=== PATIENT | female | born 1995 | race Caucasian/White ===

== ENCOUNTER 2017-08-31 11:02 | Emergency (ER) | payer BC ==
[2017-08-31 11:16] VITALS: TEMP 96.8
--- NOTE | 2017-08-31 12:07 | RAD ---
Procedure: XR MANDIBLE 1-3 VIEWS Exam Date: 08/31/2017 11:13 AM CDT Ordering Provider: Tuan Gonzalez Clinical Indication: jaw pain after trauma Comparison: None Findings: There is a subtle lucency involving the left mandibular condylar neck with slight angulation. This may be from a nondisplaced fracture. IMPRESSION: Possible nondisplaced fracture at the left mandibular condyle neck. Recommend correlation with direct palpation. This could be further assessed with cross-sectional examination there is high clinical concern. Electronically signed by: Gonzalo Irene MD 08/31/2017 12:06 PM CDT
[2017-08-31] MEDS ORDERED: HYDROcodone 5MG/APAP 325MG 1 EA TAB PO ONE (12:21)
[2017-08-31] MEDS ORDERED: diphenhydrAMINE HCL 25 MG CAP PO ONE (12:40)
[2017-08-31] MEDS ORDERED: SULFA/TRIMETH 800/160 (DS) TAB 1 EA TAB PO ONE ×2 (12:40→13:18)
[2017-08-31] MEDS ORDERED: predniSONE 20 MG TAB PO ONE (12:40)
--- NOTE | 2017-08-31 12:43 | ED.PDOC ---
History of Present Illness - General Chief Complaint: Laceration Stated Complaint: laceration Time Seen by Provider: 08/31/17 11:12 Source: patient Exam Limitations: no limitations - History of Present Illness Initial Comments: hit chin on friend while tubing [place] the [place] now with 1 inch incision under the chin and pain in the left jaw with mild swelling in that area. normal teeth occlusion. no other areas or pain or obvious injury no evidence of concussion or neck pain. Severity: moderate Improving Factors: immobilization Worsening Factors: movement Associated Symptoms: denies symptoms Allergies/Adverse Reactions: Allergies NO KNOWN ALLERGY Allergy (Verified 08/31/17 11:16) Home Medications: Ambulatory Orders Pspheolitcehz-Enwp-Rekiopfycn [Fioricet] 1 ea PO Q8H PRN #21 tab 08/31/17 Norgestimate-Ethinyl Estradiol [Sprintec 28 0.25-35 mg-Mcg] 1 tablet PO DAILY Sulfa/Trimeth 800/160 (Ds) Tab [Bactrim DS Tab] 1 ea PO DAILY #5 tab 08/31/17 Review of Systems - Review of Systems Constitutional: States: no symptoms reported EENTM: States: see HPI Respiratory: States: no symptoms reported Cardiology: States: no symptoms reported Gastrointestinal/Abdominal: States: no symptoms reported Genitourinary: States: no symptoms reported Musculoskeletal: States: no symptoms reported Skin: States: see HPI Neurological: States: no symptoms reported Endocrine: States: no symptoms reported All other Systems: No Change from Baseline Past Medical History (General) - Patient Medical History Hx Asthma: No Surgical History: other - Vaccination History Hx Tetanus, Diphtheria Vaccination: Yes Hx Influenza Vaccination: No - Social History Hx Alcohol Use: Yes - socially - Female History Patient : No Family Medical History - Family History Mother Family History: Unknown Physical Exam - Physical Exam General Appearance: Alert, Comfortable, No apparent distress Eye Exam: bilateral normal Ears, Nose, Throat: hearing grossly normal, normal pharynx, other - pain to left tmj Neck: full range of motion, supple Respiratory: lungs clear, normal breath sounds, no respiratory distress, no accessory muscle use Cardiovascular/Chest: normal peripheral pulses, regular rate, rhythm, no edema Peripheral Pulses: radial,right: 2+, radial,left: 2+, dorsalis pedis,right: 2+, dorsalis pedis,left: 2+ Rectal Exam: deferred Back Exam: normal inspection, no CVA tenderness, no vertebral tenderness Extremity: normal range of motion, non-tender, normal inspection, no pedal edema , normal capillary refill Neurologic: hall monitor II-XII nml as tested, alert, normal mood/affect, oriented x 3 Skin Exam: other - see hpi Comments: Vital Signs - 24 hr 08/31/17 11:07 Temperature 96.8 F L Pulse Rate [ 107 H pulse ox] Respiratory 20 Rate Blood Pressure 132/92 [Right Arm] O2 Sat by Pulse 99 Oximetry Progress - Progress Progress: 08/31/17 13:19 pt with 1 inch chin lac without evidence of underlying fracture. r/b explained and repair done after cleaning with peroxide with 3 simple sutures of 4-0 ethilon after 2 times of lidocaine with epi x3cc each for local. tolerated well. ebl less than 5cc. cover with bandaid and abo. keep out of sun. will be on bactrim daily for 5 days for prophylaxis. follow up with ent of her choice in [place] for nondisplaced left mandibular condyle fracture in 1-2 weeks. for now have liquid and pureed diet. good teeth occlusion at this time. er warnings given. Departure - Departure Clinical Impression: Accidental laceration Fracture of mandible Qualifiers: Encounter type: initial encounter Fracture type: closed Mandible location: condylar process Laterality: left Qualified Code(s): S02.612A - Fracture of condylar process of left mandible, initial encounter for closed fracture Disposition: Discharge to Home or Self Care Condition: Fair Departure Forms: ED Discharge - Pt. Copy, Patient Portal Self Enrollment Instructions: DI for Laceration Repair -- Simple, Jaw Fracture Diet: other - pureed Activity: ambulate only with walker Prescriptions: Bcqojwcbwmmwm-Tkow-Xkxaqmfrcz [Fioricet] 1 ea PO Q8H PRN #21 tab PRN Reason: Pain Sulfa/Trimeth 800/160 (Ds) Tab [Bactrim DS Tab] 1 ea PO DAILY #5 tab Home Medications: Ambulatory Orders Qcrlqhiyhemzi-Vkzl-Kfxbojcmie [Fioricet] 1 ea PO Q8H PRN #21 tab 08/31/17 Norgestimate-Ethinyl Estradiol [Sprintec 28 0.25-35 mg-Mcg] 1 tablet PO DAILY 07 /04/18 Sulfa/Trimeth 800/160 (Ds) Tab [Bactrim DS Tab] 1 ea PO DAILY #5 tab 08/31/17 Additional Instructions: pt with 1 inch chin lac without evidence of underlying fracture. repair done after cleaning with peroxide with 3 simple sutures of 4-0 ethilon after 2 times of lidocaine with epi x3cc each for local. cover with bandaid and abo. keep out of sun. will be on bactrim daily for 5 days for prophylaxis. follow up with ent of her choice in [place] for nondisplaced left mandibular condyle fracture in 1-2 weeks. for now have liquid and pureed diet. good teeth occlusion at this time. er warnings given.
[2017-08-31] MEDS ORDERED: NEOMYCIN-BACITRACIN-POLYMYXIN 0.9 GM UD TOP ONE (13:30)
[2017-08-31 13:41] VITALS: BP 142/96; O2SAT 95
== END 2017-08-31 13:35 | disposition home or self-care (01) ==
LOC: ER 11:02
DX: S01.81XA Laceration without foreign body of other part of head, initial encounter (principal); S02.612A Fracture of condylar process of left mandible, initial encounter for closed fracture; W51.XXXA Accidental striking against or bumped into by another person, initial encounter; Y93.16 Activity, rowing, canoeing, kayaking, rafting and tubing; Y92.828 Other wilderness area as the place of occurrence of the external cause